=== PATIENT | female | born 1990 | race African-American/Black ===

== ENCOUNTER 2021-04-29 19:36 | Emergency (ER) | payer SELFPAY ==
[~2021-04-29] VITALS: Ht 165.1 cm; Wt 146.5 kg
[2021-04-29] MEDS ORDERED: SODIUM CHLORIDE 0.9% 1000ML 1,000 ML IV SCH (20:45)
[2021-04-29] MEDS ORDERED: KETOROLAC TROMETHAMINE 30 MG/ML VIAL IV STA (21:00)
[2021-04-29] MEDS ORDERED: KETOROLAC TROMETHAMINE 30 MG/ML VIAL ONE (21:41)
[2021-04-29] MEDS ORDERED: SODIUM CHLORIDE 0.9% 1000ML 1,000 ML ONE (21:41)
[2021-04-29] MEDS ORDERED: ONDANSETRON ODT4 MG PO (23:05)
[2021-04-29 23:15] VITALS: BP 156/88
== END 2021-04-29 23:15 | disposition home or self-care (01) ==
LOC: FSED 19:48
DX: R11.2 Nausea with vomiting, unspecified (principal); B34.9 Viral infection, unspecified; E86.0 Dehydration; R00.0 Tachycardia, unspecified
CPT/HCPCS: 71046; 81003; 81025; 93005; 96374; 99284; J1885; J7030

== ENCOUNTER 2021-05-04 09:01 | Emergency (ER) | payer SELFPAY ==
[~2021-05-04] VITALS: Ht 165.1 cm; Wt 144.8 kg
[~2021-05-04 09:01] MED LIST: ONDANSETRON ODT4 MG PO
[2021-05-04] MEDS ORDERED: METRONIDAZOLE500 MG PO ×2 (10:13→10:55)
[2021-05-04] MEDS ORDERED: DOXYCYCLINE HY100 MG PO (10:14)
== END 2021-05-04 10:32 | disposition home or self-care (01) ==
LOC: FSED 09:45
DX: T19.2XXA Foreign body in vulva and vagina, initial encounter (principal); R03.0 Elevated blood-pressure reading, without diagnosis of hypertension
CPT/HCPCS: 81025; 99283